=== PATIENT | male | born 1985 | race Caucasian/White ===

== ENCOUNTER 2023-01-15 09:09 | Emergency (ER) | payer OTHER, SELFPAY ==
[2023-01-15 09:48] VITALS: BP 152/93; PULSE 87; RESP 18; TEMP 36.4; O2SAT 100
--- NOTE | 2023-01-15 10:03 | ED.SKABFB ---
HPI - Skin/Abscess/Foreign Bdy General Chief complaint: Skin/Abscess/Foreign Body Stated complaint: cyst on tailbone Time Seen by Provider: 01/15/23 10:05 Source: patient Mode of arrival: ambulatory Limitations: no limitations History of Present Illness HPI narrative: 37-year-old male presented for complaint of abscess to the tailbone. Endorses pain started worsening over the last 3 days. Endorses pain with any movement and he is unable to sit. He states he thinks this is a pilonidal abscess. He denies having these in the past. He attempted to poke it with a needle at home but was unable to tolerate it. Took ibuprofen this morning. He endorses associated cold sweats and feeling of warmth up to the lower back. Denies numbness, tingling, weakness of the lower extremities. No PCP. Related Data Allergies Allergy/AdvReac Type Severity Reaction Status Date / Time No Known Allergies Allergy Mild Verified 01/15/23 09:55 Review of Systems Review of Systems: CONSTITUTIONAL: Denies body aches, fever, chills, or sweats. EYES: Denies visual changes, redness, or discharge. ENT: Denies rhinorrhea, congestion CARDIOVASCULAR: Denies chest pain, palpitations, or edema. RESPIRATORY: Denies cough or dyspnea. GASTROINTESTINAL: Denies abdominal pain, nausea, vomiting, or diarrhea. SKIN: per HPI MUSCULOSKELETAL: Denies back pain, joint pain, or myalgia. NEUROLOGIC: Denies headache, numbness, tingling, or weakness. [facility] Past Medical History Medical History (Updated 01/15/23 @ 10:47 by Mariela Salinas, MARTIN) No pertinent past medical history Comments At time of signature, I have reviewed and agree with nursing past medical, surgical, social and family history unless otherwise noted. Please see nursing chart for further information. There is no relevant family history pertinent to the presenting complaint Exam Narrative: GENERAL: Well-appearing HEAD: Normocephalic, atraumatic. EYES: conjunctivae clear, and EOMI. ENT: Mucous membranes moist. Oropharynx without edema, erythema or lesions. NECK: Supple. No lymphadenopathy CHEST: Clear to auscultation. HEART: Regular rate and rhythm. SKIN: Warm, dry. Abscess to tailbone and right buttock with indurated and slightly fluctuant center, 9cm surrounding erythema; tender, no active drainage NEURO: Alert and oriented x3. Course Course Emergency Course: Patient is aware of diagnosis, understands and agrees to treatment plan. Anticipatory guidance given. Patient agrees to follow-up as directed and is aware of reasons to seek care at the emergency department. Portions of this record may have been created with voice recognition software Level of Care: Express Care Visit Vital Signs Vital signs: Vital Signs Temperature 97.5 F L 01/15/23 09:48 Pulse Rate 87 01/15/23 09:48 Respiratory Rate 18 01/15/23 09:48 Blood Pressure 152/93 H 01/15/23 09:48 Pulse Oximetry 100 01/15/23 09:48 Oxygen Delivery Room Air 01/15/23 09:48 Temperature 97.5 F L 01/15/23 09:48 Pulse Rate 87 01/15/23 09:48 Respiratory Rate 18 01/15/23 09:48 Blood Pressure 152/93 H 01/15/23 09:48 Pulse Oximetry 100 01/15/23 09:48 Oxygen Delivery Room Air 01/15/23 09:48 Reviewed Procedures Abscess I/D pilonidal: Date of Incision: 01/15/23 Local Anesthetic: lidocaine 1% and with epi Amount of anesthesia used (mL): 3 Technique: incised with #11 blade and probed loculations Irrigation: Yes Packing used?: none I&D Results: Pus and Blood Abcess I&D Additional Comments: Incision made to center of area of fluctuance after local anesthesia achieved. Large amount of thick purulent discharge expelled with manual pressure. Wound irrigated and probed for loculations. Pt tolerated the procedure well. Dressing applied per RN. MDM - Skin/Abscess/Foreign Bdy MDM Narrative Medical decision making narrative: I&D performed to the
== END 2023-01-15 10:50 | disposition home or self-care (01) ==
PROVIDERS: Emergency Provider Nurse Practitioner Family
DX: L05.01 Pilonidal cyst with abscess (principal)
CPT/HCPCS: 10080; 87070; 87075; 87076; 87205; 99213; G0463